=== PATIENT | male | born 2000 | race Caucasian/White ===

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

== ENCOUNTER 2021-03-09 09:37 | Emergency (ER) | payer OTHER ==
[~2021-03-09] VITALS: Ht 185.4 cm; Wt 97.2 kg
[2021-03-09] MEDS ORDERED: ACETAMINOPHEN 500 MG TAB PO ONE (12:35)
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
[2021-03-09 13:30] VITALS: BP 126/54
== END 2021-03-09 13:30 | disposition home or self-care (01) ==
LOC: M ED 09:37
DX: S09.90XA Unspecified injury of head, initial encounter (principal); R68.84 Jaw pain; V89.2XXA Person injured in unspecified motor-vehicle accident, traffic, initial encounter; Y92.9 Unspecified place or not applicable; Y93.9 Activity, unspecified; Y99.9 Unspecified external cause status; F17.200 Nicotine dependence, unspecified, uncomplicated